=== PATIENT | female | born 1970 | race Caucasian/White ===

== ENCOUNTER 2018-07-01 08:44 | Emergency (ER) | payer OTHER ==
[~2018-07-01] VITALS: Ht 162.6 cm; Wt 69.4 kg
[~2018-07-01 08:44] MED LIST: ALBU0.0912 INH; FLO44 INH
[2018-07-01 08:45] VITALS: BP 174/104
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
[2018-07-01] MEDS ORDERED: DEXAMETHASONE 10 MG/ML VIAL IM ONE (09:10)
[2018-07-01] MEDS ORDERED: diphenhydrAMINE 50 MG/ML VIAL IM ONE (09:10)
[2018-07-01] MEDS ORDERED: ALBUTEROL SULFATE/IPRATROPIU 3 ML SOL IH ONE (09:10)
--- NOTE | 2018-07-01 09:52 | NUR ---
Patient appears to be resting comfortably in bed. Vital Signs within normal limits. Respirations even and unlabored.WILL CONTINUE TO MONITOR.
[2018-07-01 10:34] VITALS: BP 128/71
--- NOTE | 2018-07-01 10:34 | NUR ---
Patient discharged with v/s stable. Written and verbal after care instructions given and explained. Patient alert, oriented and verbalized understanding of instructions. Ambulatory with steady gait. All questions addressed prior to discharge. ID band removed. Patient advised to follow up with PMD. Rx of AITHROMAX, ALBUTEROL INHALER, PREDNISONE given. Patient educated on indication of medication including possible reaction and side effects. Opportunity to ask questions provided and answered.
== END 2018-07-01 10:34 | disposition home or self-care (01) ==
LOC: MED 08:44
DX: J45.901 Unspecified asthma with (acute) exacerbation (principal); J06.9 Acute upper respiratory infection, unspecified; Z79.899 Other long term (current) drug therapy
CPT/HCPCS: 94640; 94760; 96372; 99284; J1100; J1200; J7620

== ENCOUNTER 2018-11-24 15:50 | Emergency (ER) | payer OTHER ==
[~2018-11-24] VITALS: Ht 162.6 cm; Wt 70.3 kg
[2018-11-24 16:02] VITALS: BP 112/64
[2018-11-24] MEDS ORDERED: ALBUTEROL SULFATE/IPRATROPIU 3 ML SOL IH ONE (16:50)
[2018-11-24] MEDS ORDERED: DEXAMETHASONE 10 MG/ML VIAL IM ONE (16:50)
[2018-11-24] MEDS ORDERED: cefTRIAXone 1,000 MG in LIDOCAINE 1% ***ER ONLY *** 2.1 ML IM ONE (16:50)
[2018-11-24] MEDS ORDERED: hydrOXYzine HCL 25 MG TAB PO ONE (16:50)
[2018-11-24] MEDS ORDERED: cefTRIAXone 1,000 MG VIAL ONE (17:05)
[2018-11-24] MEDS ORDERED: LIDOCAINE MPF 1% - 5 mL VIAL 5 ML ONE (17:06)
[2018-11-24 17:48] VITALS: BP 112/64
== END 2018-11-24 17:48 | disposition home or self-care (01) ==
LOC: MED 15:50
DX: J45.909 Unspecified asthma, uncomplicated (principal); Z79.899 Other long term (current) drug therapy
CPT/HCPCS: 71046; 94640; 96372; 99283; J0696; J1100; J2001; J7620

== ENCOUNTER 2019-11-05 19:45 | Emergency (ER) | payer OTHER ==
[~2019-11-05] VITALS: Ht 162.6 cm; Wt 70.3 kg
[2019-11-05 19:49] VITALS: BP 161/85
--- NOTE | 2019-11-05 19:55 | NUR ---
PT AMBULATED TO BED 7. PROVIDING URINE.
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
--- NOTE | 2019-11-05 20:18 | NUR ---
DR HUERTA AT BEDSIDE EXAMINING PT AT THIS TIME.
[2019-11-05 20:46] VITALS: BP 161/85
== END 2019-11-05 20:46 | disposition home or self-care (01) ==
LOC: MED 19:45
DX: S70.11XA Contusion of right thigh, initial encounter (principal); S80.11XA Contusion of right lower leg, initial encounter; S80.01XA Contusion of right knee, initial encounter; J45.909 Unspecified asthma, uncomplicated; Z79.51 Long term (current) use of inhaled steroids; W22.8XXA Striking against or struck by other objects, initial encounter; Y92.89 Other specified places as the place of occurrence of the external cause; Y93.89 Activity, other specified; Y99.0 Civilian activity done for income or pay
CPT/HCPCS: 99283